=== PATIENT | female | born 1970 | race Caucasian/White ===

== ENCOUNTER 2018-10-09 07:03 | Emergency (ER) | payer OTHER ==
[~2018-10-09] VITALS: Ht 152.4 cm; Wt 72.6 kg
[2018-10-09 07:11] VITALS: Ht 152.4 cm; Wt 72.6 kg
[2018-10-09 08:00] LABS: BASOPHIL % 0.5 % (0-2); PLATELET COUNT 242 x10^3mcL (130-400)
[2018-10-09 08:15] LABS: RED CELL DISTRIBUTION WIDTH 16.2 % (11.5-14.5)
[2018-10-09 08:18] LABS: CALCIUM 8.5 mg/dL (8.5-10.1); CARBON DIOXIDE 26.2 mmol/L (21-32); CHLORIDE SERUM 109 mmol/L (98-107); CREATININE SERUM 0.6 mg/dL (0.6-1.0); GFR1 > 60 mL/min; GLUCOSE SERUM 111 mg/dL (74-106); POTASSIUM SERUM 4.4 mmol/L (3.5-5.1); SODIUM SERUM 143 mmol/L (136-145)
[2018-10-09 08:23] LABS: ALBUMIN 3.4 g/dL (3.4-5.0); ALKALINE PHOSPHATASE 31 U/L (46-116); ALT/SGPT 19 U/L (14-59); AST/SGOT 16 U/L (15-37); BILIRUBIN TOTAL 0.19 mg/dL (0.20-1.00); TOTAL PROTEIN, SERUM 6.5 g/dL (6.4-8.2)
[2018-10-09 12:44] VITALS: BP 110/67
== END 2018-10-09 12:54 | disposition home or self-care (01) ==
LOC: ED 07:03
PROVIDERS: Specialist
DX: D25.9 Leiomyoma of uterus, unspecified (principal); N92.1 Excessive and frequent menstruation with irregular cycle; Z88.5 Allergy status to narcotic agent; Z98.890 Other specified postprocedural states; Z90.49 Acquired absence of other specified parts of digestive tract
CPT/HCPCS: J7030; Q0092